=== PATIENT | male | born 1965 | race Caucasian/White ===

== ENCOUNTER 2017-05-14 09:22 | Emergency (ER) | payer SELFPAY ==
[2017-05-14 09:28] VITALS: BMI 26.9
[2017-05-14] MEDS ORDERED: SODIUM CHLORIDE 1,000 ML IV STA ×2 (10:20→13:21)
[2017-05-14] MEDS ORDERED: HYDROmorphone HCL CARPU-JECT 1 MG/1 ML DISP.SYRIN ONE (10:20)
[2017-05-14] MEDS ORDERED: HYDROmorphone HCL CARPU-JECT 1 MG/1 ML DISP.SYRIN IVPUSH ONE (10:20)
--- NOTE | 2017-05-14 10:25 | PDOC ---
History of Present Illness - General Chief Complaint: Pain Stated Complaint: ABD PAIN /VOMITING Time Seen by Provider: 05/14/17 10:06 History Source: Patient - History of Present Illness Timing/Duration: reports: constant Quality: reports: other ("strong pain") Pain Radiation: reports: no radiation Past History - Past Medical History Allergies/Adverse Reactions: Allergies Allergy/AdvReac Type Severity Reaction Status Date / Time No Known Allergies Allergy Verified 05/14/17 09:27 Home Medications: Ambulatory Orders NK [No Known Home Medication] 05/14/17 - Psycho/Social/Smoking Cessation Hx Suicidal Ideation: No Smoking History: Never smoked Information on smoking cessation initiated: No Review of Systems - Review of Systems Constitutional: No: Chills, Fever Respiratory: No: Shortness of Breath Cardiac (ROS): No: Chest Pain ABD/GI: Yes: Diarrhea, Nausea, Vomiting : No: Dysuria, Hematuria *Physical Exam - Vital Signs Last Vital Signs Temp Pulse Resp BP Pulse Ox 98 F 64 18 127/71 98 05/14/17 09:24 05/14/17 09:24 05/14/17 09:24 05/14/17 09:24 05/14/17 09:24 - Physical Exam General Appearance: Yes: Appropriately Dressed. No: Apparent Distress HEENT: positive: Normal Voice Neck: positive: Supple Respiratory/Chest: negative: Respiratory Distress Gastrointestinal/Abdominal: positive: Tender (to LLQ), Soft Male Genitalia: positive: normal genitalia. negative: discharge, testicular tenderness, testicular mass, epididymus tender, hernia Musculoskeletal: negative: CVA Tenderness Integumentary: positive: Dry, Warm Neurologic: positive: Fully Oriented, Alert, Normal Mood/Affect ED Treatment Course - LABORATORY CBC & Chemistry Diagram: 05/14/17 10:41 05/14/17 10:41 - RADIOLOGY Radiology Studies Ordered: Category Date Time Status ABDOMEN & PELVIS CT WITH CONTR [CT] Stat CT Scan 05/14/17 10:20 Ordered Medical Decision Making - Medical Decision Making 05/14/17 10:22 51-year-old male denies any past medical history here with left lower quadrant pain which nausea, vomiting that started last night. Also complaining of some diarrhea. No hematochezia, melena, dysuria, ever or chills. Denies history of similar episode See exam R/o diverticulitis -pain control -labs -CT 05/14/17 13:02 05/14/17 13:[address] negative for diverticulitis, but with ? rectal thickening concerning for possible proctitis. Patient denies any rectal pain, tenesmus or bright red blood per rectum and rectal exam unremarkable. Patient now complaining of weakness and dizziness since receiving Dilaudid and was found to be hypotensive to 90s over 60s in ED. No chest pain or shortness of breath. IV fluid in progress and will reassess 05/14/17 13:38 05/14/17 14:46 Pt feeling significantly better s/p IVF. BP 103/65 w/ O2 sat of 98% on RA. Requesting discharge. Will dc w/ otc meds as needed for pain. Currently in the process of obtaining insurance. Will refer to PMD 05/14/17 14:47 05/14/17 14:48 05/14/17 15:04 *DC/Admit/Observation/Transfer Diagnosis at time of Disposition: Abdominal pain Qualifiers: Abdominal location: left lower quadrant Qualified Code(s): R10.32 - Left lower quadrant pain - Referrals Referrals: Amado Alarcon MD [Staff Physician] - - Patient Instructions Printed Discharge Instructions: DI for Viral Gastroenteritis -- Adult Additional Instructions: Labs and CT were negative. Please follow up with Dr Cordova when insurance is active
[2017-05-14 11:02] LABS: BASOPHIL 0.2 % (0-2.0); EOSINOPHIL 0.1 % (0-4.5); MCH 29.6 pg (25.7-33.7); MCHC 33.3 g/dl (32.0-35.9); MEAN CELL VOLUME 88.9 fl (80-96); MEAN PLT VOLUME 8.2 fl (7.5-11.1); NEUTROPHILS 92.5 % (42.8-82.8); PLATELET COUNT 176 K/MM3 (134-434); RDW 13.3 % (11.9-15.9); WHITE BLOOD COUNT 9.3 K/mm3 (4.0-10.0)
[2017-05-14 11:05] LABS: URINE APPEARANCE SLCLOUDY; URINE BILIRUBIN NEGATIVE (NEGATIVE); URINE BLOOD 3+ (NEGATIVE); URINE COLOR LTYELLOW; URINE GLUCOSE (UA) NEGATIVE (NEGATIVE); URINE KETONE TRACE (NEGATIVE); URINE LEUK ESTERASE NEGATIVE (NEGATIVE); URINE NITRITE NEGATIVE (NEGATIVE); URINE UROBILINOGEN NEGATIVE mg/dL (0.2-1.0)
[2017-05-14 11:15] LABS: URINE PROTEIN 1+ (NEGATIVE)
[2017-05-14 11:19] LABS: ALBUMIN 4.1 g/dl (3.4-5.0); ANION GAP 5 (8-16); BILIRUBIN,TOTAL 0.5 mg/dL (0.2-1.0); CO2 30 mmol/L (21-32); CREATININE 0.9 mg/dL (0.7-1.3); GLUCOSE,RANDOM 124 mg/dL (74-106); SGOT/AST 23 U/L (15-37); SGPT/ALT 25 U/L (12-78); TOT PROT 7.6 g/dl (6.4-8.2); URINE BACTERIA RARE /hpf (NONE SEEN); URINE MUCUS RARE; URINE RBC 2931 /hpf (0-3); URINE WBC 5 /hpf (3-5)
[2017-05-14 11:20] LABS: ALK PHOS 101 U/L (45-117)
[2017-05-14 15:12] VITALS: BP 103/65; PULSE 55; TEMP 97.8
== END 2017-05-14 15:00 | disposition home or self-care (01) ==
LOC: JER 09:22
PROC: 3E0337Z Introduction of Electrolytic and Water Balance Substance into Peripheral Vein, Percutaneous Approach (ICD-10-PCS; principal; 2017-05-14)
PROC: 3E033NZ Introduction of Analgesics, Hypnotics, Sedatives into Peripheral Vein, Percutaneous Approach (ICD-10-PCS; 2017-05-14)
DX: A08.4 Viral intestinal infection, unspecified (principal); B97.89 Other viral agents as the cause of diseases classified elsewhere
CPT/HCPCS: 36415; 74177-TC; 80053; 81003; 81015; 83690; 85025; 99282-25